=== PATIENT | female | born 1945 | race Caucasian/White ===

== ENCOUNTER 2016-10-13 07:49 | Inpatient (IN) | payer MEDICARE, OTHER ==
[~2016-10-13] VITALS: Ht 162.6 cm; Wt 67.0 kg
[2016-10-13] VITALS (15 sets, daily range): BP systolic 99–132; BP diastolic 51–84; PULSE 72–87; RESP 12–21; O2SAT 93–97
[~2016-10-13 07:49] MED LIST: ALLERTEC PO; ASCO-294 PO; AZEL137S11 NS; BROMDAY AFFECT_EYE; Bupivacaine Liposome 1.3% 20 mL Inj INFILTRATE ONE; CA C1TAB35 PO; CINN500C14 PO; CeFAZolin 2 Gm/50 mL D5W IV Premix IV ONE; FLUT9.9S NS; LATA2.5D6 OP; Lactated Ringer's 1,000 ML IV ONE; MAGN250T29 PO; MELO-259 PO; MULT-666 PO; OMEG-38 PO; TRAZ-118 PO; VITA400C64 PO; Vancomycin Inj 1,000 MG in IV Premix 1 EACH IV ONE
--- NOTE | 2016-10-13 10:09 | PCM.HPANE ---
Patient Data Surgeon Admitting Provider: Attending Provider:Jung Guo MD Primary Care Physician:Mahsa Overton MD Other Provider: Reason for Visit Right Knee Arthritis Ht/WT & BMI Height (Feet): 5 Height (Inches): 4.00 Weight (Kilograms): 65.9 Body Mass Index 24.00 Allergies Coded Allergies: adhesive tape (Verified Allergy, Severe, RASH, 10/08/16) amoxicillin (Verified Adverse Reaction, Severe, DISCOMFORT, 10/08/16) clavulanic acid (Verified Adverse Reaction, Severe, DISCOMFORT, 10/08/16) Past Anesthesia History Anesthesia History: Denies:: Anesthesia Reactions, Malignant Hyperthermia Diabetes History Hx Diabetes?: No MRSA MRSA: No Medications Home Meds Incl Beta [place]: No Reported Medications Vitamin E Mixed (Vitamin E)400 Unit [id number] Unit PO DAILY 30 Days 10/08/16 Ascorbate Calcium (Vitamin C)500 Mg Cambvk634 Mg PO DAILY 10/08/16 Trazodone 100 Mg Covcfc853 Mg PO HS Ref 0 10/08/16 Multivitamin (Once Daily)1 Each Tablet1 Each PO DAILY 10/08/16 Meloxicam 7.5 Mg Tablet7.5 Mg PO DAILY 30 Days Ref 0 10/08/16 Magnesium Oxide (Magnesium)250 Mg Pwqdqx034 Mg PO DAILY 10/08/16 Latanoprost 2.5 Ml Drops1 Gtt OP HS #1 BOTTLE 10/08/16 Fluticasone Propionate (Flonase Allergy Relief)50 Mcg/Actuation Worden.susp9.9 Ml NS DAILY 10/08/16 [place]-3/Dha/Epa/Fish Oil (Fish Oil 1,000 mg Softgel)1 Each Capsule1 Each PO DAILY 10/08/16 Cinnamon Bark (Cinnamon)500 Mg Sajyaek723 Mg PO DAILY 10/08/16 [Brom] No Conflict Check1-2 Drop AFFECT_EYE DIRECTED PRN GLAUCOMA 10/08/16 Ca Carb/D3/Argnin/Inos/Silicon (Bone Density Calcium + D Cplt)1 Each Tablet3 Each PO DAILY 10/08/16 Azelastine HCl 137 Mcg/0.137 Ml Worden.sdmz424 Mcg NS DAILY 10/08/16 [Allertec] No Conflict Check10 Mg PO DAILY 10/08/16 Discontinued Reported Medications Citalopram-Expunged Drug, Do Not Renew! 20 Mg Gwmplv81 Mg PO AM 02/27/12 Lovastatin-Expunged Drug, Do Not Renew! 40 Mg Wnvnqx51 Mg PO AM 02/27/12 History History of ENT Problems?: Yes HEENT History: Positive for:: Glaucoma Sinus Problem (HX SINUSITIS/SEASONAL ALLERGIES) Hx of Heart Problems?: No Hx of Respiratory Problem?: No Respiratory History: Denies:: Use of C-PAP Machine Hx Neurologic Problems?: No Hx of GI Problems?: Yes Other GI Pertinent History: S/P COLECTOMY/ILEOSTOMY R/T ULCERATIVE COLITIS Hx of Problems?: No Female Hx: Denies:: Currently Skin History: Denies:: History Skin Disorders? Pressure Ulcers Hx Musculoskeletal Problems?: Yes Musculoskeletal History: Positive for:: Musculoskeletal Trauma (S/P RT KNEE SCOPE HX LAGOS'S CYST RT KNEE) Osteoarthritis (RT KNEE=CURRENT PROBLEM) Denies:: Back Injury (C/OF LUMBAR BACK PAIN) Hx of Psycho/Social Problems?: Yes Psycho Social History: Positive for:: Hx Depression Hx Surgeries?: Yes (COLECTOMY/COLOSTOMY,RT KNEE SCOPE) Hx Any Other Health Problems?: Yes Other History: Denies:: Cancer Endocrine Disease Hospitalization Thyroid Disease History Blood Transfusions: Denies:: Blood Transfusions Hx Diabetes: No Hx Alcohol Use: Yes (HX ABUSE) Stop/Bang S-Snoring: Do You Snore Loudly: No T-Tired: feel tired, fatigued: No O-Obsered: Observed not breath: No P-Blood Pressure: treated: No B- Body Mass Index > 35 kg/m2: No A- Age over 50: Yes N- Neck Large Circumference: No G- Gender Male: No ZACK Total Score: 1 Risk Assessment Category Category 1A: Patient has history of documented sleep apnea, and HAS NOT received any narcotic, sedative or anesthesia administration during this stay. Category 1B: Patient has history of documented sleep apnea, and HAS received any narcotic , sedative or anesthesia administration during this stay Category 2: Patient has SUSPECTED Obstructive Sleep Apnea, and HAS received any narcotic , sedative or anesthesia administration during this stay. Category 3: Patient has SUSPECTED Obstructive Sleep Apnea and HAS NOT received narcotic, sedative or anesthesia administration during this stay. Category 4: Outpatient in Procedural Areas with known sleep apnea or who screen positive for High Risk via the STOP/BANG questionnaire. Exam Exam Vital Signs Vital Signs Date Time Temp Pulse Resp B/P Pulse Ox O2 Delivery O2 Flow Rate FiO2 10/13/16 08:21 36.5 80 18 132/84 95 Room Air General Appearance: Alert, Oriented X3, Cooperative HEENT/AIRWAY: MP 2 Lungs: Clear to Auscultation, Clear to Percussion Heart: Exam Unremarkable, Regular Rate/Rhythm Meds/Labs/Diagnostics Admission Meds Current Medications Lactated Ringer's 1,000 ml @ 120 mls/hr Q8H20M ONCE IV Last administered on 08:01; Start 10/13/16 at 05:00; Stop 10/13/16 at 13:19 Vancomycin HCl/ Dextrose/Premix (Vancomycin Inj/ IV Premix) 200 ml @ 133.333 mls/hr PREOP ONCE IV Last administered on 10/13/16 09:10; Start 10/13/16 at 06: 00; Stop 10/13/16 at 07:29; Status DC Plan Impression Patient chart reviewed, patient interviewed and anesthestic plan with risks, benefits, and alternatives discussed, and informed consent obtained. NPO Status: water 5am ASA Physical Status: ASA2 Mod Systemic Disease Anesthetic Plan: Regional Block, SAB Bene/Risks/Altern/Consents: Yes HP Complete Prior to Induction: Yes Nadir Doyle MD Oct 13, 2016 10:09
[2016-10-13] MEDS ORDERED: Bupivacaine-MPF 0.25%/EPI 30 mL Inj INFILTRATE ONE (10:20)
[2016-10-13] MEDS ORDERED: Bupivacaine Liposome 1.3% 20 mL Inj INFILTRATE ONE (10:20)
[2016-10-13] MEDS ORDERED: Gentamicin 40 mg/mL 2 mL Inj IRRIGATION ONE (10:20)
[2016-10-13] MEDS ORDERED: Lactated Ringer's 500 ML IV PRN (10:32)
[2016-10-13] MEDS ORDERED: Lactated Ringer's 1,000 ML IV SCH (10:32)
[2016-10-13] MEDS ORDERED: Labetalol 5 mg/mL 4 mL Inj IV PRN (10:35)
[2016-10-13] MEDS ORDERED: fentaNYL-PF 50 mCg/mL 2 mL Inj IVPUSH PRN (10:35)
[2016-10-13] MEDS ORDERED: MetoCLOpramide 5 mg/mL 2 mL Inj IVPUSH PRN ×2 (10:35→10:55)
[2016-10-13] MEDS ORDERED: HYDROmorphone 1 mg/mL Inj IVPUSH PRN (10:35)
[2016-10-13] MEDS ORDERED: EPHEDrine Sulfate 50 mg/mL Inj IVPUSH PRN (10:35)
[2016-10-13] MEDS ORDERED: hydrALAZINE 20 mg/mL Inj IVPUSH PRN (10:35)
[2016-10-13] MEDS ORDERED: Phenylephrine 10,000 mCg/mL Inj IVPUSH PRN (10:35)
[2016-10-13] MEDS ORDERED: Ondansetron 2 mg/mL 2 mL Inj IVPUSH PRN ×2 (10:35→10:55)
[2016-10-13] MEDS ORDERED: Atropine 0.4 mg/mL Inj IVPUSH PRN (10:35)
[2016-10-13] MEDS ORDERED: diphenhydrAMINE 25 mg Capsule PO PRN (10:55)
[2016-10-13] MEDS ORDERED: Sodium Biphos-Phos 133 mL Enema RECTAL PRN (10:55)
[2016-10-13] MEDS ORDERED: Vancomycin Dose per Pharmacist XX ONE (10:55)
[2016-10-13] MEDS ORDERED: Polyethylene Glycol (PEG) 17 Gm Powder PO PRN (10:55)
[2016-10-13] MEDS ORDERED: Magnesium Hydroxide 10 mL Oral Concentration PO PRN (10:55)
[2016-10-13] MEDS ORDERED: HYDROcodone-APAP 5-325 mg Tablet PO PRN (10:55)
--- NOTE | 2016-10-13 12:02 | PCM.ANEP1 ---
Post Anesthesia Phase 1 PACU Phase 1 Assessment Vital Signs Vital Signs Date Time Temp Pulse Resp B/P Pulse Ox O2 Delivery O2 Flow Rate FiO2 10/13/16 11:58 17 96 10/13/16 11:45 36.1 81 21 104/76 95 Room Air 10/13/16 11:35 80 19 105/64 95 Room Air 10/13/16 11:30 80 16 102/66 96 Room Air 10/13/16 11:24 81 14 109/68 95 Room Air 10/13/16 11:22 12 96 10/13/16 11:20 85 17 108/51 97 Room Air 10/13/16 11:15 36.5 84 14 99/55 95 Room Air 10/13/16 08:21 36.5 80 18 132/84 95 Room Air Anesthetic Administered: Regional Block, SAB Level of Alertness: Awake, talking LUTHER's with Equal Strength: No Pain: No Nausea or Vomiting: No Oxygen Delivery: Room Air Dermatome Level: L3,4 (Patella) Nadir Doyle MD Oct 13, 2016 12:02
--- NOTE | 2016-10-13 12:02 | PCM.ANEP2 ---
Post Anesthesia Evaluation ASA/CMS Post Anesthesia Date of Service: Oct 13, 2016 VS in Patient's Normal Range?: Yes Resp Stable; Airway Patent?: Yes CV Function & Hydration Stable: Yes Mental Status Recovered?: Yes Pain control Satisfactory?: Yes N/V Control Satisfactory?: Yes Nadir Doyle MD Oct 13, 2016 12:02
--- NOTE | 2016-10-13 12:13 | DRSVH ---
PROCEDURE: X-RAY RIGHT KNEE, ONE OR TWO VIEWS ([id number]) INDICATIONS: postop TECHNIQUE: 2 view(s) of the knee acquired. COMPARISON: None. FINDINGS: Bones: Patient is status post knee joint arthroplasty. Hardware components are in expected position s. Visualized bony structures are intact. Soft tissues: Overlying postoperative changes are noted. IMPRESSION: Expected postoperative appearance Dictated by: Mack Ag M.D. on 10/13/2016 at 12:11 Approved by: Mack Ag M.D. on 10/13/2016 at 12:11
[2016-10-13] MEDS ORDERED: fentaNYL-PF 50 mCg/mL 2 mL Inj ONE (12:43)
[2016-10-13] MEDS ORDERED: HYDROmorphone 0.5 mg/0.5 mL iSecure Syringe IVPUSH PRN (12:55)
[2016-10-13] MEDS ORDERED: BROMDAY BOTH_EYES PRN (13:15)
[2016-10-13] MEDS ORDERED: Ondansetron 2 mg/mL 2 mL Inj ONE (13:32)
[2016-10-13] MEDS ORDERED: Propofol 10,000 mCg/mL 20 mL Inj ONE (13:32)
[2016-10-13] MEDS ORDERED: Ropivacaine-PF 0.5% 30 mL Inj ONE (13:32)
[2016-10-13] MEDS ORDERED: Dexamethasone 4 mg/mL Inj ONE (13:32)
[2016-10-13 14:00] LABS: APPEARANCE,URINE HAZY (CLEAR,HAZY); COLOR,URINE STRAW (YELLOW)
[2016-10-13 14:01] LABS: OCCULT BLOOD,URINE TRACE (NEGATIVE); PH,URINE 6.5 (5.0-8.0); UROBILINOGEN,URINE NORMAL (NORMAL)
--- NOTE | 2016-10-13 15:02 | NUR ---
Postop Pt admitted from PACU to OSC unit, 1020, at 1241 Arrived via bed. A&Ox3, LUTHER - limited to BLE d/t spinal, wiggles toes, RLE toes warm and cap refill <3 seconds, Dressing CDI, VSS - BP per pt lower than normal, SCD to Left leg, IV with empty IVF bag - SL d/t no IVF orders, Pt tolerating PO - water and jello; Caro lugo patent, Hemovac clamped till 1610 per PACU. Pt waiting for belongings. Oriented to room and call light. Bed low and locked. Care continues.
--- NOTE | 2016-10-13 15:37 | NUR ---
Evaluation completed. Please go to "Notes" then click on "Assessments and Notes" (bottom left corner of screen). Then select appropriate discipline tab on top of screen.
[2016-10-13] MEDS: oxyCODONE-Acetamin 5-325 mg Tablet PO PRN (16:05)
[2016-10-13] MEDS ORDERED: 0.9% Sodium Chloride 250 ML ONE (17:49)
[2016-10-13] MEDS: Sodium Chloride LOK Flush 10 mL Syringe IV SCH (17:52)
[2016-10-13] MEDS: CeFAZolin Inj 2 GM in IV Premix 1 EACH IV SCH (17:52)
[2016-10-13] MEDS: Senna-Docusate 8.6-50 mg Tablet PO SCH (21:32)
--- NOTE | 2016-10-13 21:51 | OP ---
[address] [address] OPERATIVE REPORT PATIENT: OBED BUCHANAN : 1945 MR#: [id number] ADMIT: 10/13/2016 JOB ID: [id number] DATE OF SURGERY: 10/13/2016 PREOPERATIVE DIAGNOSIS(ES): Advanced arthritis, medial compartment of right knee. POSTOPERATIVE DIAGNOSIS(ES): Advanced tricompartment arthritis. SURGEON: Jung Guo MD. ADDRESSING MACHINE OPERATOR: Lou Garza PA-C. Implementation Manager required due to the major complexity of the operation. COMPLICATIONS: None. INDICATIONS: This woman has had advanced disability with symptoms uncontrolled by conservative treatment. She elects to proceed with a partial versus total knee replacement. Final decision made at the time of surgery. She understands and accepts the potential for risks and complication which includes but is not limited to infection, thromboembolic, neurovascular events, as well as the potential for implant failure. PROCEDURE: 1. Diagnostic arthroscopy to determine appropriateness for unicompartmental versus total knee arthroplasty. 2. Right total knee arthroplasty. PROCEDURE: The patient was prepped and draped in the usual sterile fashion. An anteromedial portal was utilized to perform a diagnostic arthroscopy. Intact ACL was encountered. Advanced arthritis in the medial compartment. The lateral compartment did reveal a full-thickness condylar lesion in the central weightbearing area, articulating at approximately 30 degrees of flexion. Decision was subsequently made that this patient would be best served with a total knee arthroplasty. The fluid was lavaged from the knee and the arthroscope was removed. A standard anteromedial approach was subsequently made to the knee. Dissection was carried down. Patella was subluxed laterally, cut transversely and sized to a 29. A patellar protection plate was utilized. Drill hole was placed in the distal femur and a 5 degree valgus distal femoral cut was made. The external rotation tool and sizing guide was utilized to size the femur to a 5 component and a 5 chamfer cutting block was fixed in appropriate position and rotation, and drill holes and chamfer cuts were made. The tibia was then cut with the extramedullary tool. All meniscal tissue and osteophytes were removed. The tibia was sized to a D tibial block, fixed in appropriate position and rotation, and drill and punch was subsequently utilized. Trial reductions were performed and a 10 mm polyethylene produced excellent soft tissue tracking, balance, and full range of motion. Pressurized lavage was followed by pressurized cementation. Excess cement was removed during the curing process. Final construct was assembled. Deep Hemovac drain was left. The tourniquet was let down. Deep closure with number #2 Quill deep, followed by 2-0, 3-0, and a 4-0 intracuticular stitch. Wounds had been lavaged with a dilute Betadine solution. Sterile dressing was applied, and patient was returned to the recovery room in stable condition. She tolerated the procedure well. There were no complications.
[2016-10-14] MEDS: Sodium Chloride LOK Flush 10 mL Syringe IV SCH ×3 (00:30→17:45)
[2016-10-14] MEDS: CeFAZolin Inj 2 GM in IV Premix 1 EACH IV SCH (00:52)
[2016-10-14 02:03] VITALS: BP 108/68; PULSE 67; RESP 16; O2SAT 95
[2016-10-14] MEDS: oxyCODONE-Acetamin 5-325 mg Tablet PO PRN ×6 (02:34→20:58)
--- NOTE | 2016-10-14 05:17 | NUR ---
Ambulation Pt is pain free at start of shift, CSM intact, and ambulating well to BR. Ice at knee, JUSTINA wrap intact. Hemovac draining sanguinous fluid. No complaints of SOB or chest pain, knee pain managed with PRN medications. Monitored for voiding due to recent carrion removal. Pt cares for and emptys her ileostomy site. No N/V this shift. Will continue to monitor.
[2016-10-14] MEDS ORDERED: Vancomycin 1 Gm/200 mL D5W Premix IV ONE (06:00)
[2016-10-14 06:51] VITALS: BP 128/75; PULSE 72; RESP 16; O2SAT 95
[2016-10-14 07:21] LABS: BASOPHILS % (AUTO) 0.1 % (0-3); EOSINOPHILS % (AUTO) 0.7 % (0-5); MONOCYTES % (AUTO) 10.1 % (4-12); Mean Corpuscular Hemoglobin 31.5 pg (27.0-35.0); Mean Corpuscular Volume 95.9 fL (81-100); NEUTROPHILS % (AUTO) 81.4 % (40-74); Platelet Count 204 bil/L (150-400)
[2016-10-14] MEDS: AZELASTINE NASAL SCH (07:43)
[2016-10-14] MEDS: Senna-Docusate 8.6-50 mg Tablet PO SCH ×2 (07:43→20:57)
[2016-10-14] MEDS: Fluticasone 0.05% 15 Spray/2 Gm 16 Gm Nasal Spray NASAL SCH (07:43)
[2016-10-14 08:48] VITALS: BP 108/72; PULSE 76; RESP 16; O2SAT 96
--- NOTE | 2016-10-14 09:46 | PCM.PNORTH ---
Subjective Date of Service: Oct 14, 2016 Visit Information: Reason for Visit Right Knee Arthritis Surgery/Surgery Date R TKA 10/13/15 Post-Op Day # 1 Date of Admission: Oct 13, 2016 at 12:42 Hospital Day # Subjective Patient states she is doing well. She states her block wore off around 2 AM. She states she has been taking only one pain pill that has been adequately managing her pain. Patient was inquiring as to when to begin physical therapy and appeared she states she has the referral for a program management analyst places to go however she has not set it up yet. I instructed her to call today to try and get set up for Thursday or Thursday. She states she does not have compression stockings at home. Postop General: No Complaints, No Shortness of Breath, No Chest Pain Pain Management: PO Objective Exam Objective Patient sitting up in bed Vital Signs and I/O Vital Sign - Last Date Time Temp Pulse Resp B/P Pulse Ox O2 Delivery O2 Flow Rate FiO2 10/14/16 08:48 36.6 76 16 108/72 96 Room Air Intake and Output 10/13/16 10/13/16 10/14/16 Cumulative From/Thru 15:00 23:00 07:00 10/08/16 12:20 - 10/14/16 06:51 Intake Total 1260 ml 856 ml 400 ml 2516 ml Output Total 600 ml 850 ml 1570 ml 3020 ml Balance 660 ml 6 ml -1170 ml -504 ml Intake Oral 800 ml 400 ml 1200 ml IV Total 1260 ml 56 ml 1316 ml Output Urine Total 560 ml 800 ml 1100 ml 2460 ml Stool Total 350 ml 350 ml Drainage Total 50 ml 120 ml 170 ml Estimated Blood Loss 40 ml 40 ml Lab & Micro Results Laboratory Tests Test 10/13/16 13:23 10/14/16 06:20 Urine Color Straw (YELLOW) Urine Appearance Hazy (CLEAR,HAZY) Urine pH 6.5 (5.0-8.0) Urine Specific [place] 1.005 (1.003-1.035) Urine Protein Negativemg/dL (NEG,TRACE) Urine Glucose (UA) Negativemg/dL (NEGATIVE) Urine Ketones Negativemg/dL (NEGATIVE) Urine Occult Blood Trace (NEGATIVE) Urine Nitrite Negative (NEGATIVE) Urine Bilirubin Negative (NEGATIVE) Urine Urobilinogen Normalmg/dL (NORMAL) Urine Leukocyte Esterase Negative (NEGATIVE) Urine RBC 0-2/hpf (0-2) Urine WBC 0-5/hpf (0-5) Urine Epithelial Cells Occasional/hpf (NONE-MOD) Urine Crystals None seen (NONE SEEN) Urine Bacteria None/hpf (NONE-FEW) Urine Hyaline Casts None/lpf (NONE) Urine Granular Casts None seen (NONE SEEN) Urine Waxy Casts None seen (NONE SEEN) Urine Red Blood Cell Casts None seen (NONE SEEN) Urine White Blood Cell Casts None seen (NONE SEEN) Urine Mucus None seen (None Seen) Urine Trichomonas None seen (NONE SEEN) Urine Yeast None (NONE SEEN) Urinalysis Comment None Urine Culture Reflexed Not indicated White Blood Count 8.9th/mm3 (3.8-10.1) Red Blood Count 3.40mil/mm3 (3.90-5.20) Hemoglobin 10.7g/dL (12.0-15.6) Hematocrit 32.6% (35.0-46.0) Mean Corpuscular Volume 95.9fL (81-100) Mean Corpuscular Hemoglobin 31.5pg (27.0-35.0) Mean Corpuscular Hemoglobin Concent 32.8% (32.0-37.0) Red Cell Distribution Width 14.8% (12.3-15.4) Platelet Count 204bil/L (150-400) Neutrophils (%) (Auto) 81.4% (40-74) Lymphocytes (%) (Auto) 7.5% (14-46) Monocytes (%) (Auto) 10.1% (4-12) Eosinophils (%) (Auto) 0.7% (0-5) Basophils (%) (Auto) 0.1% (0-3) Result Diagram: 10/14/16 0620 General Appearance: Alert, Oriented X3, Cooperative, No Acute Distress Extremities: Warm, No Compartment Syndrom Noted, Thigh & Calf Soft/Nontender Postop Sensory Motor: Distal Motor Intact, Movement in Toes, Distal Sensation Intact, NVI Distally SURGICAL WOUND : Wound Location/Description Perioperative dressing clean dry and intact. Hemovac in place. Drain Location Body Site: Knee Incision General Appearance: No Direct Observation Wound Drainage Type: Hemovac Activity: Ambulate with PT (weight bearing as tolerated with walker) Assessment & Plan Impression Postoperative day #1 right total knee arthroplasty Problems: Plan Weightbearing: Weightbearing as tolerated with a front wheeled walker DVT prophylaxis: Aspirin 325 mg twice a day 6 weeks Physical therapy for transfers, progressive ambulation, strengthening Wound care: Perioperative dressing will be changed to an island dressing tomorrow by PA. Analgesia: Continue oral pain management. I have ordered thigh high compression stockings. Please apply these tomorrow after dressing has been changed. Discharge plan: Discharge home in 1-2 days. Start outpatient physical therapy next week. Follow-up plan: In 2 weeks at [facility] with PA for wound check and at [address] Guo with x-rays Lou Garza PA-C Oct 14, 2016 09:46
[2016-10-14 12:26] VITALS: BP 102/62; PULSE 74; RESP 16; O2SAT 93
--- NOTE | 2016-10-14 14:40 | NUR ---
Social Work Initial Assessment D: EMR reviewed. See initial assessment. Pt is a 71Y old female admitted for Right Knee Arthritis. Insurance is Medicare and [facility]. PCP is Dr. Overton. ENMA met with Pt at bedside, SW role explained. Pt lives at home with her spouse in [place] where she remains independent. Pt does not use any DME, had HH back in the 1979' and denies SNF history. Pt does have LTC insurance. Pt has obtained a walker for use post op and will be scheduling with [facility] Out Physical Therapy to begin after Pt returns home. SW anticipates Pt to discharge home in 1-2 days pending clinical course. No discharge needs identified. If needs arise, SW to address. A: Pt who is independent at baseline P: Pt has obtained a walker for use post op and will be scheduling with [facility] Out Physical Therapy to begin after Pt returns home. ENMA anticipates Pt to discharge home in 1-2 days pending clinical course. No discharge needs identified. If needs arise, ENMA to address. BETHANIE Le Addendum: 10/14/16 at 1443 by CYNTHIA LUNA Amended: Links added.
[2016-10-14 16:40] VITALS: BP 126/71; PULSE 85; RESP 16; O2SAT 94
--- NOTE | 2016-10-14 17:50 | NUR ---
POST-OP PROGRESS Percocet 1-2 tabs PO has been effective for pain control. Tolerating liquids PO and her diet well. Denies nausea. No emesis noted. Denies SOB. Patient has been able to get OOB and ambulate in the room with SBA. She sat for a couple of hours in the chair. Tolerated activity well. Output from Hemovac was 25 ml. Per protocol Hemovac d/cd. Dressing was off when Hemovac was d/cd. Island dressing placed over steri strips. Talat hose placed over affected leg. Patient is voiding without any problems.
[2016-10-14 20:10] VITALS: BP 109/70; PULSE 85; RESP 18; O2SAT 95
[2016-10-15] MEDS: Sodium Chloride LOK Flush 10 mL Syringe IV SCH ×3 (03:07→16:30)
[2016-10-15 05:45] VITALS: BP 122/77; PULSE 79; RESP 18; O2SAT 93
--- NOTE | 2016-10-15 05:46 | NUR ---
Activity Pt sleeping well this shift, complaints of pain at HS and and in AM- 2x percocet with good relief. Pt ambulates to BR without difficulty. No complaints of SOB, headache, N/V. CSM intact, IV patent. Will continue to monitor and plan for DC today
[2016-10-15] MEDS: oxyCODONE-Acetamin 5-325 mg Tablet PO PRN ×3 (05:56→14:40)
[2016-10-15 06:32] LABS: BASOPHILS % (AUTO) 0.6 % (0-3); EOSINOPHILS % (AUTO) 6.9 % (0-5); MONOCYTES % (AUTO) 12.7 % (4-12); Mean Corpuscular Hemoglobin 31.5 pg (27.0-35.0); NEUTROPHILS % (AUTO) 66.6 % (40-74); Platelet Count 208 bil/L (150-400)
--- NOTE | 2016-10-15 08:05 | PCM.PNORTH ---
Subjective Date of Service: Oct 15, 2016 Visit Information: Reason for Visit Right Knee Arthritis Surgery/Surgery Date R TKA 10/13/15 Post-Op Day # Date of Admission: Oct 13, 2016 at 12:42 Hospital Day # Subjective Found patient awake and alert sitting up in bed. No complaints of pain at this time. Patient performed very well with physical therapy yesterday on postop day 1 and is asking about discharge today on postop day 2. I have asked patient to have 1 more physical therapy session today to ensure that her success was not due to pain medication and that she is in fact safe with her mobility and comfortable and then I have informed her we would be happy to discharge her today on postop day 2. Patient states she has no stairs to enter her home. Patient also states she has a prescription for formal outpatient physical therapy but has not arrange this yet. I have impressed upon her that we would need to do this as soon as possible after discharge. Patient is otherwise in good spirits and doing very well and I believe she is ready for discharge. Postop General: No Complaints, No Shortness of Breath, No Chest Pain, Good Appetite Pain Management: PO Objective Exam Objective Orientation: Alert and oriented 3 and pleasant. Wound: Operative incision site is in good condition with no erythema, no drainage and no focal swelling. Dressing: Intraoperative dressing has been changed postop dressing yesterday on postoperative day #1. This dressing is replaced today. Thigh-high teds are in place. Compartments: Thigh and calf are soft and nontender. Mobility/sensation: Toe wiggle and sensation are intact in right lower extremity distally. Elizondo: Absent Drain: Absent Gait: Gait in excess of 150 feet yesterday on postoperative day 1 with formal physical therapy. Patient has received recommendation for discharge to home by physical therapy. Vital Signs and I/O Vital Sign - Last Date Time Temp Pulse Resp B/P Pulse Ox O2 Delivery O2 Flow Rate FiO2 10/15/16 05:45 37.0 79 18 122/77 93 Room Air Intake and Output 10/14/16 10/14/16 10/15/16 Cumulative From/Thru 15:00 23:00 07:00 10/08/16 12:20 - 10/15/16 06:46 Intake Total 337 ml 2054 ml 600 ml 5507 ml Output Total 2300 ml 1350 ml 6670 ml Balance 337 ml -246 ml -750 ml -1163 ml Intake Oral 2054 ml 600 ml 3854 ml IV Total 337 ml 1653 ml Output Urine Total 2100 ml 1000 ml 5560 ml Stool Total 200 ml 350 ml 900 ml Drainage Total 170 ml Estimated Blood Loss 40 ml Lab & Micro Results Laboratory Tests Test 10/15/16 05:42 White Blood Count 6.5th/mm3 (3.8-10.1) Red Blood Count 3.36mil/mm3 (3.90-5.20) Hemoglobin 10.6g/dL (12.0-15.6) Hematocrit 32.6% (35.0-46.0) Mean Corpuscular Volume 97.0fL (81-100) Mean Corpuscular Hemoglobin 31.5pg (27.0-35.0) Mean Corpuscular Hemoglobin Concent 32.5% (32.0-37.0) Red Cell Distribution Width 15.3% (12.3-15.4) Platelet Count 208bil/L (150-400) Neutrophils (%) (Auto) 66.6% (40-74) Lymphocytes (%) (Auto) 12.9% (14-46) Monocytes (%) (Auto) 12.7% (4-12) Eosinophils (%) (Auto) 6.9% (0-5) Basophils (%) (Auto) 0.6% (0-3) Result Diagram: 10/15/16 0542 General Appearance: Alert, Oriented X3, Cooperative, No Acute Distress Extremities: No Compartment Syndrom Noted, Thigh & Calf Soft/Nontender Postop Sensory Motor: Distal Motor Intact, Movement in Toes, Distal Sensation Intact SURGICAL WOUND : Drain Location Body Site: Knee Incision General Appearance: No Direct Observation Wound Drainage Type: Hemovac Activity: Activity per PT, Ambulate with PT (weight bearing as tolerated with walker) Catheters: None Assessment & Plan Plan Postop day # 2 from right total knee arthroplasty performed on 10/13/[address] Jung Guo. Weight bearing status: Weightbearing as tolerated on the right lower extremity Mobility aid: Front-wheeled walker Immobilization: None Precautions: Standard postop total knee precautions Physical therapy: Continue formal physical therapy for mobility, gait and safety. Patient indicates no stairs to access her home. Pain control: Pain currently controlled on by mouth pain medications. DVT prophylaxis: ASA 325 mg EC by mouth twice a day 6 weeks postop for DVT prophylaxis. Wound care: Keep wound clean dry and intact until seen in office in 2 weeks. Infectious DZ: None Elizondo: Absent Dressing: Interoperative dressing has been changed to postop dressing on postop day 1. Dressing is really changed today with ends trimmed for ventilation. Thigh high Breanna hose are in place. Drain: Absent Nursing: Nursing please continue by mouth pain medications today as needed with anticipation of discharge today on postop day 2 after first therapy session. 2-week follow-up: Follow-up in 2 weeks at [facility] orthopedic clinic with medical provider for wound check and suture removal. 6-week follow-up: Follow-up in 6 weeks at [facility] orthopedic clinic with Dr. Jung Guo with right 2 view knee x-rays on arrival. Discharge plan: Anticipate discharge to home with spouse's caregiver on postop day 2, 10/15/2016 or postop day 3. VTE Prophylaxis: SCDs, BREANNA Hose, Other (ASA 325 mg EC by mouth twice a day 6 weeks postop for DVT prophylaxis.) Khai Clemons PA-C Oct 15, 2016 07:58
[2016-10-15] MEDS: AZELASTINE NASAL SCH (08:30)
[2016-10-15] MEDS: Senna-Docusate 8.6-50 mg Tablet PO SCH (08:51)
[2016-10-15] MEDS: Fluticasone 0.05% 15 Spray/2 Gm 16 Gm Nasal Spray NASAL SCH (08:53)
--- NOTE | 2016-10-15 12:34 | NUR ---
Social Work Continued Discharge Planning: Order for discharge acknowledged on 10/16/16. Plan is home with spouse and outpt PT at [facility]. SW met with patient who presented SW with paperwork referral for outpt therapy. SW faxed script to outpt center, [phone]. SW spoke to outpt therapy center who states that patient to be contacted for outpt arrangements with schedule time. No other anticipated discharge needs at this time. Patient states being independent and to assist. SW to follow. PLAN: Home with spouse and outpt PT at [facility] (referral faxed). No other anticipated discharge needs Bhavin KOVACS
--- NOTE | 2016-10-15 13:58 | NUR ---
Pain Patient rates pain 3-4/10 tolerable with po pain management. Pt anticipates dc home this afternoon. Prescription hardcopy given to to prefilled home Meds before discharge. Pt up independently around hallway.
[2016-10-15 14:01] VITALS: BP 103/61; PULSE 76; RESP 16; O2SAT 94
--- NOTE | 2016-10-15 16:56 | PCM.DIORTH ---
Ortho Discharge Instruction Date of Service: Oct 15, 2016 Dates of Hospitalization Date of Hospital Admission Oct 13, 2016 at 12:42 Providers Admitting Physician: Jung Guo MD Primary Care Physician: Mahsa Overton MD Attending Physician: Jung Guo MD Diet Discharge Diet: No restrictions Activity Discharge Activity-General: Try not to overdue, Be up and about, Balance rest and activity, Ice incision 3-5 time/day for 20min, Activity as pain allows, Activity as energy allows, No driving while taking narcotic Right Lower Extremity: Weight Bearing as tolerated, % of Weight Bearing Discharge Assist Device: Front Wheeled Walker Dressing and Incisional Care Discharge Dressing Care: Keep dressing clean, dry & intact, Change soiled dressing Discharge Hygiene: May shower (patient may shower but dressing and wound should be kept clean and dry.), DO NOT soak incision under water, NO bathtub, hot tub or whirlpool Additional Instructions Discharge Instructions Weight bearing status: Weightbearing as tolerated on the right lower extremity Mobility aid: Front-wheeled walker Immobilization: None Precautions: Standard postop total knee precautions Physical therapy: Continue formal physical therapy for mobility, gait and safety. Patient indicates no stairs to access her home. Pain control: Pain currently controlled on by mouth pain medications. DVT prophylaxis: ASA 325 mg EC by mouth twice a day 6 weeks postop for DVT prophylaxis. Wound care: Keep wound clean dry and intact until seen in office in 2 weeks. Infectious DZ: None Elizondo: Absent Dressing: Interoperative dressing has been changed to postop dressing on postop day 1. Dressing is really changed today with ends trimmed for ventilation. Thigh high Talat hose are in place. Drain: Absent Nursing: Nursing please continue by mouth pain medications today as needed with anticipation of discharge today on postop day 2 after first therapy session. 2-week follow-up: Follow-up in 2 weeks at [facility] orthopedic clinic with medical provider for wound check and suture removal. 6-week follow-up: Follow-up in 6 weeks at [facility] orthopedic clinic with Dr. Jung Guo with right 2 view knee x-rays on arrival. Discharge plan: Anticipate discharge to home with spouse's caregiver on postop day 2, 10/15/2016 or postop day 3. Follow Up Plan Follow Up Plan Follow-up at 2 weeks, 6 weeks and 12 weeks postoperatively. Follow up when necessary in the interim. Follow-up Provider (F9): Jung Guo MD Follow-up appointment: Weeks (follow-up in 2 weeks at [facility] orthopedic clinic on prearranged appointment with mid-level provider for wound check and suture removal.) Call your provider for: Fever, Chills, Shortness of breath, Vomitting, Drainage at incision Khai Clemons PA-C Oct 15, 2016 16:56
[2016-10-15] MEDS ORDERED: DOCU-41 PO (17:03)
[2016-10-15] MEDS ORDERED: Aspirin-Expunged Drug, Do Not Renew! PO (17:03)
[2016-10-15] MEDS ORDERED: OXYC1TAB24 PO (17:03)
[2016-10-15] MEDS ORDERED: HYDR25CA PO (17:03)
--- NOTE | 2016-10-15 17:05 | PCM.DC.ORT ---
Discharge Summary Date of Service: Oct 15, 2016 Date of Hospital Admission: Oct 13, 2016 at 12:42 Date of Surgery: Oct 13, 2016 Date of Discharge: Oct 15, 2016 Reason for Hospitalization: Severe right knee osteoarthritis Procedures Performed: Right total knee arthroplasty Hospital Course: Patient was admitted to the preoperative care unit on 10/13/2016 and upon processing was taken to the operating room where her procedure was performed without incident. Upon awakening patient was taken to the postoperative care unit and upon recovery from anesthesia patient was taken to the orthopedic care unit where she performed well with physical therapy and proceed a recommendation for discharge to home on postop day 2. Problems: (1) Osteoarthritis Status: Acute ICD Code: M19.90 Disposition: Discharge to home with family as caregivers Orthopedic Follow up Plan: In Two Weeks in my clinic (follow-up in 2 weeks at [facility] orthopedic clinic on 3 spinal with mid-level provider for wound check and suture removal.) Discharge Instructions: Weight bearing status: Weightbearing as tolerated on the right lower extremity Mobility aid: Front-wheeled walker Immobilization: None Precautions: Standard postop total knee precautions Physical therapy: Continue formal physical therapy for mobility, gait and safety. Patient indicates no stairs to access her home. Pain control: Pain currently controlled on by mouth pain medications. DVT prophylaxis: ASA 325 mg EC by mouth twice a day 6 weeks postop for DVT prophylaxis. Wound care: Keep wound clean dry and intact until seen in office in 2 weeks. Infectious DZ: None Elizondo: Absent Dressing: Interoperative dressing has been changed to postop dressing on postop day 1. Dressing is really changed today with ends trimmed for ventilation. Thigh high Talat hose are in place. Drain: Absent Nursing: Nursing please continue by mouth pain medications today as needed with anticipation of discharge today on postop day 2 after first therapy session. 2-week follow-up: Follow-up in 2 weeks at [facility] orthopedic clinic with medical provider for wound check and suture removal. 6-week follow-up: Follow-up in 6 weeks at [facility] orthopedic clinic with Dr. Jung Guo with right 2 view knee x-rays on arrival. Discharge plan: Anticipate discharge to home with spouse's caregiver on postop day 2, 10/15/2016 or postop day 3. Management Plan: Patient will be seen at 2 weeks, 6 weeks and 12 weeks postoperatively. Patient will be seen when necessary in the interim. ([Allertec]) 10 MG PO DAILY ([]) 1-2 DROP AFFECT_EYE DIRECTED PRN PRN GLAUCOMA ([Aspirin-Expunged Drug, Do Not Renew!]) 325 MG TABLET 325 MG PO BID Ascorbate Calcium (Vitamin C) 500 Mg Tablet 500 MG PO DAILY Azelastine HCl (Azelastine HCl) 137 Mcg/0.137 Ml [place].pump 137 MCG NS DAILY Ca Carb/D3/Argnin/Inos/Silicon (Bone Density Calcium + D Cplt) 1 Each Tablet 3 EACH PO DAILY Docusate Sodium (Colace) 100 Mg Capsule 100 MG PO BID Fluticasone Propionate (Flonase Allergy Relief) 50 Mcg/Actuation [place].susp 9.9 ML NS DAILY Hydroxyzine Pamoate (Vistaril) 25 Mg Capsule 25-50 MG PO Q4-6H PRN PRN For Restlessness Latanoprost (Latanoprost) 2.5 Ml Drops 1 GTT OP HS Magnesium Oxide (Magnesium) 250 Mg Tablet 250 MG PO DAILY Multivitamin (Once Daily) 1 Each Tablet 1 EACH PO DAILY Sigel-3/Dha/Epa/Fish Oil (Fish Oil 1,000 mg Softgel) 1 Each Capsule 1 EACH PO DAILY Trazodone (Trazodone) 100 Mg Tablet 100 MG PO HS Vitamin E Mixed (Vitamin E) 400 Unit Capsule 400 UNIT PO DAILY oxyCODONE-Acetaminophen 5-325 mg (oxyCODONE-Acetaminophen 5-325 mg) 1 Each Tablet 1-2 TAB PO Q4-6H PRN PRN For Severe Pain Khai Clemons PA-C Oct 15, 2016 17:05
--- NOTE | 2016-10-15 18:54 | NUR ---
Discharge Patient discharged home with spouse. Pt will follow up with surgeon as directed . Prescriptions were sent with earlier to have prefilled for dc. Pt given verbal and written home care instructions and agreed to understanding them.
== END 2016-10-15 17:45 | disposition home or self-care (01) | DRG 470 ==
LOC: SAS 07:49 → OSC 12:42
PROVIDERS: ADMIT Orthopaedic Surgery; ATTEND Orthopaedic Surgery
PROC: 0SJC3ZZ Inspection of Right Knee Joint, Percutaneous Approach (ICD-10-PCS; 2016-10-13)
PROC: 0SRC0J9 Replacement of Right Knee Joint with Synthetic Substitute, Cemented, Open Approach (ICD-10-PCS; principal; 2016-10-13 10:00)
DX: M17.11 Unilateral primary osteoarthritis, right knee (principal); E78.5 Hyperlipidemia, unspecified; F32.9 Major depressive disorder, single episode, unspecified